=== PATIENT | male | born 1995 | race Two or more races ===

== ENCOUNTER 2020-11-07 04:57 | Day surgery (SDC) | payer BC, OTHER ==
[2020-11-06 12:59] VITALS: BMI 23.6
[2020-11-07] MEDS ORDERED: MIDAZOLAM HCL 2 MG/2 ML SINGLE DOSE VIAL IVPUSH ONE ×3 (13:26→13:48)
[2020-11-07] MEDS ORDERED: SODIUM CHLORIDE 500 ML IV ONE (14:30)
[2020-11-07 16:27] VITALS: BP 112/70; PULSE 58; TEMP 98.3
== END 2020-11-07 16:05 | disposition home or self-care (01) ==
LOC: JRADIR 04:57
PROVIDERS: ATTEND Internal Medicine Hematology & Oncology
PROC: 0QB23ZX Excision of Right Pelvic Bone, Percutaneous Approach, Diagnostic (ICD-10-PCS; principal; 2020-11-07)
DX: M89.9 Disorder of bone, unspecified (principal)
CPT/HCPCS: 20225